=== PATIENT | female | born 1955 | race Caucasian/White ===

== ENCOUNTER → 2016-05-18 | Outpatient (CLI) | payer MEDICARE | LOC: US 11:16 | DX: R80.9 Proteinuria, unspecified (principal) ==

== ENCOUNTER → 2021-10-01 | Outpatient (CLI) | payer MEDICARE | LOC: EXRD 09-22 13:30 | DX: R80.9 Proteinuria, unspecified (principal); R93.422 Abnormal radiologic findings on diagnostic imaging of left kidney | CPT/HCPCS: 76775 ==